=== PATIENT | female | born 1960 | race Two or more races ===

== ENCOUNTER 2016-09-09 09:41 | Outpatient (CLI) | payer MEDICARE, MEDICAID | END 2016-09-09 23:59 | disposition home health service (06) | LOC: WOU 09:41 | PROVIDERS: ATTEND Podiatrist Foot & Ankle Surgery | DX: I83.023 Varicose veins of left lower extremity with ulcer of ankle (principal); L97.323 Non-pressure chronic ulcer of left ankle with necrosis of muscle; E11.40 Type 2 diabetes mellitus with diabetic neuropathy, unspecified; E11.51 Type 2 diabetes mellitus with diabetic peripheral angiopathy without gangrene | CPT/HCPCS: 11043; 11046; A6402 ==

== ENCOUNTER 2016-09-16 09:08 | Outpatient (CLI) | payer MEDICARE, MEDICAID | END 2016-09-16 23:59 | disposition home health service (06) | LOC: WOU 09:08 | PROVIDERS: ATTEND Podiatrist Foot & Ankle Surgery | DX: E11.59 Type 2 diabetes mellitus with other circulatory complications (principal); E11.622 Type 2 diabetes mellitus with other skin ulcer; L97.323 Non-pressure chronic ulcer of left ankle with necrosis of muscle; I83.023 Varicose veins of left lower extremity with ulcer of ankle; Z79.84 Long term (current) use of oral hypoglycemic drugs; Z79.899 Other long term (current) drug therapy | CPT/HCPCS: A6402; G0463 ==

== ENCOUNTER 2016-09-16 11:14 | Outpatient (CLI) | payer MEDICARE, MEDICAID | END 2016-09-16 23:59 | disposition home or self-care (01) | LOC: RAD 11:14 | PROVIDERS: ATTEND Podiatrist Foot & Ankle Surgery | DX: R05 Cough (principal) | CPT/HCPCS: 71010-TC ==

== ENCOUNTER 2016-09-19 10:43 | Day surgery (SDC) | payer MEDICARE, MEDICAID ==
[2016-09-19] MEDS ORDERED: CEFAZOLIN SODIUM/DEXTROSE,ISO 100 ML IV ONE (10:47)
[2016-09-19] MEDS ORDERED: BUPIVACAINE MPF 0.5% W/EPI INJ 30 ML VIAL ONE (11:42)
[2016-09-19] MEDS ORDERED: FENTANYL PF 100MCG/2ML AMPUL ONE (11:50)
[2016-09-19] MEDS ORDERED: MIDAZOLAM HCL 2 MG/2ML VIAL ONE (12:23)
[2016-09-19] MEDS ORDERED: ANESTHESIA TRAY IN PYXIS 1 EA TRAY MC ONE (14:01)
== END 2016-09-19 14:41 | disposition home or self-care (01) ==
LOC: DS 10:43
PROVIDERS: ATTEND Podiatrist Foot & Ankle Surgery
PROC: 0JBR0ZZ Excision of Left Foot Subcutaneous Tissue and Fascia, Open Approach (ICD-10-PCS; principal; 2016-09-19 12:44)
DX: E11.622 Type 2 diabetes mellitus with other skin ulcer (principal); L97.929 Non-pressure chronic ulcer of unspecified part of left lower leg with unspecified severity; E11.40 Type 2 diabetes mellitus with diabetic neuropathy, unspecified; E78.5 Hyperlipidemia, unspecified
CPT/HCPCS: 11042; 11045; 82962; 88304; 88305; 88312; A6253; J0690; J2250; J2704; J3010; J3490 ×2

== ENCOUNTER 2016-09-23 08:59 | Outpatient (CLI) | payer MEDICARE, MEDICAID | END 2016-09-23 23:59 | disposition home health service (06) | LOC: WOU 08:59 | PROVIDERS: ATTEND Podiatrist Foot & Ankle Surgery | DX: Z48.817 Encounter for surgical aftercare following surgery on the skin and subcutaneous tissue (principal); I83.023 Varicose veins of left lower extremity with ulcer of ankle; L97.323 Non-pressure chronic ulcer of left ankle with necrosis of muscle; E11.51 Type 2 diabetes mellitus with diabetic peripheral angiopathy without gangrene | CPT/HCPCS: 11043; 97605-TC; A6402 ==

== ENCOUNTER 2016-09-26 11:40 | Outpatient (CLI) | payer MEDICARE, MEDICAID | END 2016-09-26 23:59 | disposition home health service (06) | LOC: WOU 11:40 | PROVIDERS: ATTEND Podiatrist Foot & Ankle Surgery | DX: Z48.817 Encounter for surgical aftercare following surgery on the skin and subcutaneous tissue (principal); L97.322 Non-pressure chronic ulcer of left ankle with fat layer exposed; E11.622 Type 2 diabetes mellitus with other skin ulcer; I83.023 Varicose veins of left lower extremity with ulcer of ankle; E11.51 Type 2 diabetes mellitus with diabetic peripheral angiopathy without gangrene | CPT/HCPCS: 11043; 11046; A6402 ==

== ENCOUNTER 2016-09-30 09:42 | Outpatient (CLI) | payer MEDICARE, MEDICAID | END 2016-09-30 23:59 | disposition home health service (06) | LOC: WOU 09:42 | PROVIDERS: ATTEND Podiatrist Foot & Ankle Surgery | DX: I83.023 Varicose veins of left lower extremity with ulcer of ankle (principal); L97.322 Non-pressure chronic ulcer of left ankle with fat layer exposed; E11.622 Type 2 diabetes mellitus with other skin ulcer; E11.51 Type 2 diabetes mellitus with diabetic peripheral angiopathy without gangrene; Z79.84 Long term (current) use of oral hypoglycemic drugs | CPT/HCPCS: 11043; A6402; J3490 ==

== ENCOUNTER 2016-10-01 13:40 | Outpatient (CLI) | payer MEDICARE, MEDICAID | END 2016-10-01 23:59 | disposition home or self-care (01) | LOC: VASLAB 13:40 | PROVIDERS: ATTEND Surgery Vascular Surgery | DX: I83.023 Varicose veins of left lower extremity with ulcer of ankle (principal); E11.622 Type 2 diabetes mellitus with other skin ulcer; L97.322 Non-pressure chronic ulcer of left ankle with fat layer exposed; Z98.890 Other specified postprocedural states | CPT/HCPCS: A6402; A6452; G0463 ==

== ENCOUNTER 2016-10-07 09:50 | Outpatient (CLI) | payer MEDICARE, MEDICAID | END 2016-10-07 23:59 | disposition home health service (06) | LOC: WOU 09:50 | PROVIDERS: ATTEND Podiatrist Foot & Ankle Surgery | DX: I87.2 Venous insufficiency (chronic) (peripheral) (principal); L97.323 Non-pressure chronic ulcer of left ankle with necrosis of muscle; E11.51 Type 2 diabetes mellitus with diabetic peripheral angiopathy without gangrene; Z79.84 Long term (current) use of oral hypoglycemic drugs; Z79.899 Other long term (current) drug therapy | CPT/HCPCS: 11043; 11046; A6402; A6452; J3490 ==

== ENCOUNTER 2016-10-14 09:19 | Outpatient (CLI) | payer MEDICARE, MEDICAID | END 2016-10-14 23:59 | disposition home health service (06) | LOC: WOU 09:19 | PROVIDERS: ATTEND Podiatrist Foot & Ankle Surgery | DX: E11.622 Type 2 diabetes mellitus with other skin ulcer (principal); L97.323 Non-pressure chronic ulcer of left ankle with necrosis of muscle; I83.023 Varicose veins of left lower extremity with ulcer of ankle; Z79.84 Long term (current) use of oral hypoglycemic drugs; Z79.899 Other long term (current) drug therapy | CPT/HCPCS: 11043; A6402; A6452; J7040 ==

== ENCOUNTER 2016-10-24 09:07 | Outpatient (CLI) | payer MEDICARE, MEDICAID | END 2016-10-24 23:59 | disposition home health service (06) | LOC: WOU 09:07 | PROVIDERS: ATTEND Podiatrist Foot & Ankle Surgery | DX: E11.622 Type 2 diabetes mellitus with other skin ulcer (principal); L97.321 Non-pressure chronic ulcer of left ankle limited to breakdown of skin; E11.51 Type 2 diabetes mellitus with diabetic peripheral angiopathy without gangrene; I83.023 Varicose veins of left lower extremity with ulcer of ankle; Z98.890 Other specified postprocedural states | CPT/HCPCS: 11042; A6402; A6452 ==

== ENCOUNTER 2016-10-31 09:52 | Outpatient (CLI) | payer MEDICARE, MEDICAID | END 2016-10-31 23:59 | disposition home health service (06) | LOC: WOU 09:52 | PROVIDERS: ATTEND Podiatrist Foot & Ankle Surgery | DX: I83.023 Varicose veins of left lower extremity with ulcer of ankle (principal); L97.321 Non-pressure chronic ulcer of left ankle limited to breakdown of skin; E11.622 Type 2 diabetes mellitus with other skin ulcer; Z83.3 Family history of diabetes mellitus; Z98.890 Other specified postprocedural states; Z79.84 Long term (current) use of oral hypoglycemic drugs; Z79.899 Other long term (current) drug therapy | CPT/HCPCS: 11042; A6402; A6452 ==

== ENCOUNTER 2016-11-11 08:53 | Outpatient (CLI) | payer MEDICARE, MEDICAID | END 2016-11-11 23:59 | disposition home or self-care (01) | LOC: WOU 08:53 | PROVIDERS: ATTEND Podiatrist Foot & Ankle Surgery | DX: E11.51 Type 2 diabetes mellitus with diabetic peripheral angiopathy without gangrene (principal); I83.023 Varicose veins of left lower extremity with ulcer of ankle; L97.321 Non-pressure chronic ulcer of left ankle limited to breakdown of skin; Z79.899 Other long term (current) drug therapy; Z79.84 Long term (current) use of oral hypoglycemic drugs; E11.622 Type 2 diabetes mellitus with other skin ulcer; T81.31XD Disruption of external operation (surgical) wound, not elsewhere classified, subsequent encounter; Z83.3 Family history of diabetes mellitus | CPT/HCPCS: 11042; A6402 ==

== ENCOUNTER 2016-11-21 09:18 | Outpatient (CLI) | payer MEDICARE, MEDICAID | END 2016-11-21 23:59 | disposition home health service (06) | LOC: WOU 09:18 | PROVIDERS: ATTEND Podiatrist Foot & Ankle Surgery | DX: I83.023 Varicose veins of left lower extremity with ulcer of ankle (principal); L97.321 Non-pressure chronic ulcer of left ankle limited to breakdown of skin; E11.622 Type 2 diabetes mellitus with other skin ulcer | CPT/HCPCS: 11042; A6402 ==

== ENCOUNTER 2016-11-28 09:15 | Outpatient (CLI) | payer MEDICARE, MEDICAID | END 2016-11-28 23:59 | disposition home health service (06) | LOC: WOU 09:15 | PROVIDERS: ATTEND Podiatrist Foot & Ankle Surgery | DX: T81.31XA Disruption of external operation (surgical) wound, not elsewhere classified, initial encounter (principal); I83.023 Varicose veins of left lower extremity with ulcer of ankle; L97.321 Non-pressure chronic ulcer of left ankle limited to breakdown of skin; E11.622 Type 2 diabetes mellitus with other skin ulcer; Z83.3 Family history of diabetes mellitus; Z79.84 Long term (current) use of oral hypoglycemic drugs | CPT/HCPCS: 11042; A6402 ==

== ENCOUNTER 2016-12-05 09:45 | Outpatient (CLI) | payer MEDICARE, MEDICAID | END 2016-12-05 23:59 | disposition home health service (06) | LOC: WOU 09:45 | PROVIDERS: ATTEND Podiatrist Foot & Ankle Surgery | DX: T81.89XA Other complications of procedures, not elsewhere classified, initial encounter (principal); I83.023 Varicose veins of left lower extremity with ulcer of ankle; L97.321 Non-pressure chronic ulcer of left ankle limited to breakdown of skin | CPT/HCPCS: 11042; A6402 ==

== ENCOUNTER 2016-12-19 09:50 | Outpatient (CLI) | payer MEDICARE, MEDICAID | END 2016-12-19 23:59 | disposition home health service (06) | LOC: WOU 09:50 | PROVIDERS: ATTEND Podiatrist Foot & Ankle Surgery | DX: I83.023 Varicose veins of left lower extremity with ulcer of ankle (principal); E11.622 Type 2 diabetes mellitus with other skin ulcer; L97.321 Non-pressure chronic ulcer of left ankle limited to breakdown of skin; Z83.3 Family history of diabetes mellitus; Z79.84 Long term (current) use of oral hypoglycemic drugs; Z79.899 Other long term (current) drug therapy | CPT/HCPCS: 11042; A6402 ==

== ENCOUNTER → 2017-01-02 | Outpatient (CLI) | payer MEDICARE, MEDICAID | END | disposition home or self-care (01) | LOC: WOU 09:45 | PROVIDERS: ATTEND Podiatrist Foot & Ankle Surgery | DX: E11.9 Type 2 diabetes mellitus without complications (principal); I83.92 Asymptomatic varicose veins of left lower extremity; Z79.84 Long term (current) use of oral hypoglycemic drugs | CPT/HCPCS: G0463 ==